=== PATIENT | female | born 1995 | race Caucasian/White ===

== ENCOUNTER 2022-12-13 19:28 | Emergency (ER) | payer BC ==
[2022-12-13] MEDS ORDERED: Lidocaine 1% w/Epinephrine 1:100K 20 ML VIAL ONE (21:27)
[2022-12-13] MEDS ORDERED: Lidocaine 1% PF 5 ML VIAL ONE (21:29)
== END 2022-12-13 22:08 | disposition home or self-care (01) ==
LOC: ERS 19:28
DX: S61.512A Laceration without foreign body of left wrist, initial encounter (principal); W25.XXXA Contact with sharp glass, initial encounter
CPT/HCPCS: 12002